=== PATIENT | male | born 1985 ===

== ENCOUNTER 2024-01-08 18:04 | Emergency (ER) | payer OTHER ==
[~2024-01-08] VITALS: Ht 175.3 cm; Wt 68.0 kg
[2024-01-08 18:25] LABS: Hematocrit 30.3 % (37.0-53.0); Hemoglobin 9.3 g/dL (13.5-17.5); Mean Corpuscular HGB 31.1 pg (26.0-34.0); Mean Corpuscular HGB Conc 30.7 g/dL (31.5-36.5); Mean Corpuscular Volume 101 fL (80-100); Mean Platelet Volume 9.4 fL (9.1-12.4); NRBC Auto 0.9 /100 WBC (0.0-0.2); Platelet Count 230 K/mm3 (150-400); RDW Standard Deviation 48.7 fL (35.1-46.3); Red Blood Cell Count 2.99 M/mm3 (4.30-5.90); White Blood Cell Count 11.24 K/mm3 (4.00-11.30)
[2024-01-08] MEDS ORDERED: Calcium Chloride 10% 1,000 MG in NS 50 ML IV ONE (18:25)
[2024-01-08] MEDS ORDERED: EPINEPhrine HCl 0.1 MG/ML STE Water 10ML SYR IV ONE (18:27)
[2024-01-08] MEDS ORDERED: Sodium Bicarb 8.4% 50 mEq Syringe IV ONE (18:27)
[2024-01-08] MEDS ORDERED: Calcium Chloride 10% 10 ML SYR IV ONE (18:27)
--- NOTE | 2024-01-08 18:30 | NUR ---
Trauma Team Support. Monitored staff during trauma and supported Nurse Software Asset Manager until shift change.
[2024-01-08 18:35] LABS: Chloride (POC) 105 mmol/L (98-108); Creatinine (POC) 1.5 mg/dL (0.8-1.3); Glucose (ISTAT POC) 214 mg/dL (70-99); Hemoglobin (POC) 8.2 g/dL (13.5-17.5); Potassium (POC) 3.7 mmol/L (3.5-5.5); Sodium (POC) 147 mmol/L (135-148); Total CO2 (POC) 20 mmol/L (21-32)
[2024-01-08 18:38] LABS: International Normalized Ratio 1.35; Prothrombin Time Results 14.1 Sec (9.7-11.5)
[2024-01-08 18:39] LABS: Ethanol (Alcohol), Blood, Med <3 mg/dL
[2024-01-08 18:40] LABS: Alanine Aminotransfer (ALT/SGP 38 U/L (12-78); Albumin, Blood 2.3 g/dL (3.4-5.0); Albumin/Globulin Ratio 1.1 (0.8-1.8); Alk Phos 27 U/L (50-136); Anion Gap 21 mmol/L (3-11); Aspartate Aminotrans (AST/SGOT 51 U/L (12-37); Bilirubin, Total 0.2 mg/dL (0.1-1.0); Blood Urea Nitrogen 15 mg/dL (8-24); Bun/Creatinine Ratio 10.9 (12.0-20.0); CO2, Blood 17 mmol/L (21-32); Calcium, Blood 8.5 mg/dL (8.5-10.1); Chloride, Blood 112 mmol/L (98-108); Creatinine, Blood 1.38 mg/dL (0.60-1.20); Globulin, Blood 2.1 g/dL (2.2-4.0); Glomerular Filtration Rate 40 (60-); Glucose, Blood 232 mg/dL (70-99); Potassium, Blood 4.2 mmol/L (3.5-5.5); Sodium, Blood 146 mmol/L (136-145); Total Protein, Blood 4.4 g/dL (6.4-8.2)
[2024-01-08 18:44] LABS: BAND PERCENT MAN 4 % (0-8); BASOPHILS ABSOLUTE MAN 0.11 K/mm3 (0.00-0.23); BASOPHILS PERCENT MAN 1 % (0-2); EOSINOPHILS PERCENT MAN 0 % (0-6); LYMPHOCYTES PERCENT MAN 49 % (21-46); METAMYELOCYTE ABSOLUTE MAN 0.33 K/mm3 (0.00-0.00); METAMYELOCYTE PERCENT MAN 3 % (0-0); MONOCYTES ABSOLUTE MAN 0.11 K/mm3 (0.16-1.47); MONOCYTES PERCENT MAN 1 % (4-13); MYELOCYTE ABSOLUTE MAN 0.22 K/mm3 (0.00-0.00); MYELOCYTE PERCENT MAN 2 % (0-0); NEUTROPHILS ABSOLUTE MAN 4.94 K/mm3 (1.96-9.15); SEG NEUTROPHILS PERCENT MAN 40 % (41-73); TOTAL CELLS COUNTED 100
[2024-01-08] MEDS ORDERED: NS 1,000 ML IV ONE ×2 (19:21→19:27)
== END 2024-01-08 19:30 | disposition short-term general hospital (02) ==
LOC: EDBD 18:04 → ER 18:04
PROVIDERS: Emergency Medicine
DX: S27.0XXA Traumatic pneumothorax, initial encounter (principal); S06.30AA Unspecified focal traumatic brain injury with loss of consciousness status unknown, initial encounter; S36.039A Unspecified laceration of spleen, initial encounter; T79.4XXA Traumatic shock, initial encounter; S80.812A Abrasion, left lower leg, initial encounter; S80.811A Abrasion, right lower leg, initial encounter; V89.2XXA Person injured in unspecified motor-vehicle accident, traffic, initial encounter
CPT/HCPCS: 31500; 32551; 36430; 51702; 70450; 71045; 71260; 72125; 74177; 80047; 80053; 80320; 83690; 85014; 85025; 85610; 92950; 94002; 96374-59; 96375-59; 99291-25; G0390; J0171; J7030; J7060; P9016; P9059; Q9967